=== PATIENT | male | born 1985 | race Caucasian/White ===

== ENCOUNTER 2023-09-20 16:49 | Emergency (ER) | payer OTHER ==
[2023-09-20 17:13] VITALS: BP 123/80; PULSE 84; RESP 18; TEMP 98.5; BMI 23.0
== END 2023-09-20 18:13 | disposition home or self-care (01) ==
LOC: JERFT 16:49 → JER 16:49 → JERFT 18:13
DX: S91.111A Laceration without foreign body of right great toe without damage to nail, initial encounter (principal); S61.011A Laceration without foreign body of right thumb without damage to nail, initial encounter; S70.312A Abrasion, left thigh, initial encounter; S20.412A Abrasion of left back wall of thorax, initial encounter; W25.XXXA Contact with sharp glass, initial encounter
CPT/HCPCS: 99282-25